=== PATIENT | male | born 1990 | race Caucasian/White ===

== ENCOUNTER 2016-06-07 19:00 | Emergency (ER) | payer OTHER ==
--- NOTE | 2016-06-07 19:16 | ED PSYCHIATRIC COMPLAINT ---
History of Present Illness General Chief Complaint: Psychiatric Related Complaint Stated Complaint: HEARING VOICES "DEMONS ARE AROUND ME" +SI Source: patient, family Exam Limitations: confusion Vital Signs & Intake/Output Vital Signs & Intake/Output Vital Signs Date Time Temp Pulse Resp B/P Pulse O2 O2 Flow FiO2 Ox Delivery Rate 06/08 1406 97.3 65 16 112/59 06/08 1051 99.2 112 20 111/55 94 Room Air 06/08 0629 97.9 73 20 120/56 96 Room Air 06/07 2049 98.7 85 19 129/68 96 Room Air 06/07 2043 98 Room Air ED Intake and Output 06/08 0000 06/07 1200 Intake Total 25 Output Total 25 Balance 0 Intake, Oral 25 Output, Urine 25 Allergies Coded Allergies: No Known Allergies (06/07/16) Triage Nurses Notes Reviewed? yes HPI: Patient presents with visual and other times hallucinations over the past 3 days. Patient feels that he is actually projecting himself and demons are attempting to occupy his body. He also sees demons surrounding his family. Patient denies homicidal or suicidal ideations. Patient states that he has been taking his medications as prescribed. Family states that the patient occasionally smokes marijuana but has not had any in over a week. Patient is responding to internal stimuli during the exam. (MILO GUILLERMO,DAMIAN Parks) Reconcile Medications No Known Home Medications (JACOB GUILLERMO,LACEY Mathews) Past History Travel History Traveled to [place] past 21 day No Medical History Any Pertinent Medical History? see below for history Neurological: TBI Psychiatric: OCD Surgical History Surgical History: non-contributory Psychosocial History Tobacco Use: Never used ETOH Use: denies use Illicit Drug Use: marijuana Family History Hx Contributory? No (MILO GUILLERMO,DAMIAN Parks) Review of Systems Review of Systems Constitutional: Reports: no symptoms. EENTM: Reports: no symptoms. Respiratory: Reports: no symptoms. Cardiovascular: Reports: no symptoms. GI: Reports: no symptoms. Genitourinary: Reports: no symptoms. Musculoskeletal: Reports: no symptoms. Skin: Reports: no symptoms. Neurological/Psychological: Reports: see HPI. Hematologic/Endocrine: Reports: no symptoms. Immunologic/Allergic: Reports: no symptoms. All Other Systems: Reviewed and Negative (MILO GUILLERMO,DAMIAN Parks) Physical Exam Physical Exam General Appearance: well developed/nourished, alert, awake, anxious, comfortable , moderate distress Head: atraumatic Eyes: Bilateral: PERRL, EOMI. Ears, Nose, Throat: normal pharynx, normal ENT inspection, hearing grossly normal Neck: normal inspection, supple Respiratory: normal breath sounds Cardiovascular: regular rate/rhythm Gastrointestinal: soft, non-tender Extremities: normal range of motion Neurological/Psychiatric: no motor/sensory deficits, awake, agitated, alert, anxious, oriented x 3 Appearance/Memory/Insight: appropriate appearance, appropriate insight Behavoir/Eye Contact/Speech: compulsive, increased rate of speech, good eye contact Thoughts/Hallucinations: auditory hallucinations, delusions, visual hallucinations Skin: intact, normal color, warm/dry SAD PERSONS Done? CRISIS CONSULT OBTAINED (MILO GUILLERMO,DAMIAN Parks) Progress Differential Diagnosis: drug intoxication, drug overdose, drug withdrawal, electrolyte abnormality Plan of Care: Orders Procedure Date/time Status Regular Diet 06/08 B Active Continuous Observation Monitor 06/08 0700 Active Continuous Observation Monitor 06/07 1915 Active URINE DRUGS OF ABUSE 06/07 1915 Complete ETHANOL 06/07 1915 Complete COMPREHENSIVE METABOLIC PANEL 06/07 1915 Complete CBC WITHOUT DIFFERENTIAL 06/07 1915 Complete ED CRISIS PSYCH CONSULT 06/07 1915 Active Current Medications Sig/Alondra Start time Last Medication Dose Stop Time Status Admin Olanzapine 5 MG ONCE ONE 06/08 1430 AC (ZYDIS (Orally 06/08 1431 disintegrating tabs)) Laboratory Tests 06/07/162100: Anion Gap 15, Estimated GFR > 60, BUN/Creatinine Ratio 13.8, Glucose 130 H, Calcium 9.3, Total Bilirubin 0.7, AST 17, ALT 26, Alkaline Phosphatase 38, Total Protein 7.1, Albumin 4.7, Globulin 2.4, Albumin/Globulin Ratio 2.0, CBC w Diff NO MAN DIFF REQ, RBC 4.74, MCV 93.4, MCH 31.6 H, RDW 13.1, MPV 9.4, Gran % 88.0 H, Lymphocytes % 8.4 L, Monocytes % 3.2, Eosinophils % 0.1, Absolute Granulocytes 7.0 H, Absolute Lymphocytes 0.7 L, Absolute Monocytes 0.3, Absolute Eosinophils 0, Absolute Basophils 0, PUBS MCHC 33.8, Serum Alcohol < 10.0 06/07/16 2005: Urine Opiates Screen < 100.00, Methadone Screen 60, Barbiturate Screen < 60, Ur Phencyclidine Scrn < 6.00, Amphetamines Screen < 100, U Benzodiazepines Scrn < 85, Urine Cocaine Screen < 50, Urine Cannabis Screen > 80.00 H Hand-Off Endorsed To: ARTURO GUILLERMO,RAMSEY Funez Endorsed Time: 2300 Pending: consult (CRISIS) (DAMIAN PEDRAZA MD) Hand-Off Endorsed To: LACEY JAMES MD Endorsed Time: 0700 Pending: consult (RAMSEY FONTAINE MD) Comments: 06/08/2016 07:00 pt signed out to me by dr fontaine. 06/08/2016 2:22:31 PM Vijay has been evaluated by crisis and cleared for outpatient management. He'll be given a dose of Zyprexa to carry him through until his appointment tomorrow. (JACOB GUILLERMO,LACEY Mathews) Departure Departure Disposition: STILL A PATIENT Condition: Stable Departure Forms: Customer Survey General Discharge Information (MILO GUILLERMO,DAMIAN Parks) Departure Clinical Impression Primary Impression: Hallucinations Secondary Impressions: Psychosis Qualifiers: Psychosis type: unspecified psychosis type Qualified Code: F29 - Unspecified psychosis not due to a substance or known physiological condition Additional Instructions: Follow-up with the IOP at 10 AM tomorrow as discussed. Notify your primary care doctor of this emergency department visit and treatment plan. Otherwise return if any concerns or sudden worsening. Prescriptions: Current Visit Scripts No Known Home Medications (LACEY JAMES MD)
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
[2016-06-07 21:17] LABS: ABSOLUTE BASOPHIL COUNT 0 /CUMM (0.0-0.2); ABSOLUTE EOSINOPHIL COUNT 0 /CUMM (0.0-0.7); ABSOLUTE LYMPH COUNT 0.7 /CUMM (1.2-3.4); ABSOLUTE MONOCYTE COUNT 0.3 /CUMM (0.10-0.60); EOSINOPHIL % 0.1 % (0-5); HEMATOCRIT 44.3 % (42-52); MEAN CORPUSCULAR HGB 31.6 PG (27.0-31.0); MEAN CORPUSCULAR HGB CONC 33.8 G/DL (33.0-37.0); MEAN CORPUSCULAR VOLUME 93.4 FL (80.0-94.0); MEAN PLATELET VOLUME 9.4 FL (7.4-10.4); PLATELET COUNT 188 /CUMM (130-400); RBC DISTRIBUTION WIDTH 13.1 % (11.5-14.5); RED BLOOD CELL CT 4.74 /CUMM (4.70-6.10); WHITE BLOOD CELL COUNT 7.9 /CUMM (4.8-10.8)
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
[2016-06-08 16:21] VITALS: BP 145/63
== END 2016-06-08 16:39 ==
LOC: ERH 19:00
PROVIDERS: Emergency Medicine
DX: R44.1 Visual hallucinations (principal); F29 Unspecified psychosis not due to a substance or known physiological condition
CPT/HCPCS: 80307; 96372; G0463; G0480; J1200; J1630